=== PATIENT | male | born 1955 | race Caucasian/White ===

== ENCOUNTER → 2016-03-24 | Outpatient (CLI) | payer OTHER | LOC: M SMT 13:48 | PROVIDERS: ATTEND Urology | DX: R97.20 Elevated prostate specific antigen [PSA] (principal) ==

== ENCOUNTER → 2016-09-30 | Outpatient (REF) | payer OTHER ==
[~2016-09-30] MED LIST: CIPR-249 PO; CLAR1TAB2 PO; FINA5TAB2 PO; FLOM5CAP PO; FLON1SPR; LEVA1TAB2 PO; MONT10TA2 PO; OLOP1OPD OU; PHEN200T22 PO; PRIL20CA9 PO; PROAAER10 INH; TYLE325T5 PO; VITA5ELUD PO
== END ==
LOC: M LAB REF 20:25
PROVIDERS: ATTEND Physician Assistant Medical
DX: R30.0 Dysuria (principal)

== ENCOUNTER 2016-10-01 18:25 | Inpatient (IN) | payer OTHER ==
[~2016-10-01] VITALS: Ht 177.8 cm; Wt 102.7 kg
[2016-10-01] MEDS ORDERED: PRIL20CA9 PO (18:36)
[2016-10-01] MEDS ORDERED: PHEN200T22 PO (18:36)
[2016-10-01] MEDS ORDERED: CIPR-249 PO (18:36)
[2016-10-01] MEDS ORDERED: CLAR1TAB2 PO (18:36)
[2016-10-01] MEDS ORDERED: ONDANSETRON 4MG/2ML VIAL (J2405) IV ONE (20:00)
[2016-10-01] MEDS ORDERED: KETOROLAC 30 MG/ML VIAL (J1885) IV ONE (20:00)
[2016-10-01 20:19] LABS: BASO % 0.3 % (0.0-1.0); EOS # 0.2 K/mm3 (0.0-0.50); EOS % 1.4 % (0.0-3.0); LARGE UNSTAINED CELL # 0.1 K/mm3 (0.0-0.4); LARGE UNSTAINED CELL % 0.8 % (0.0-4.0); LYMPH # 1.1 K/mm3 (1.5-4.5); LYMPH % 6.2 % (24.0-44.0); MEAN CORPUSCULAR HEMOGLOBIN 30.1 pg (27.0-33.0); MEAN CORPUSCULAR HGB CONC 34.7 g/dl (32.0-36.5); MEAN CORPUSCULAR VOLUME 86.9 fl (80.0-96.0); MONO # 1.1 K/mm3 (0.0-0.8); MONO % 7.1 % (0.0-5.0); NEUTROPHILS # 13.2 K/mm3 (1.8-7.7); NEUTROPHILS % 84.1 % (36.0-66.0); PLATELET COUNT, AUTOMATED 237 k/mm3 (150-450); RED CELL DISTRIBUTION WIDTH 13.2 % (11.5-14.5); WHITE BLOOD COUNT 15.7 K/mm3 (4.0-10.0)
[2016-10-01 20:32] LABS: ALBUMIN 4.4 GM/DL (3.2-5.2); ALBUMIN/GLOBULIN RATIO 1.38 (1.00-1.93); BILIRUBIN,DIRECT 0.3 MG/DL (0.0-0.2); BILIRUBIN,TOTAL 1.2 MG/DL (0.2-1.0); CALCIUM LEVEL 8.6 MG/DL (8.8-10.2); CREATININE FOR GFR 2.05 MG/DL (0.70-1.30); GLOMERULAR FILTRATION RATE 35.4 (>49); POTASSIUM SERUM 4.1 MEQ/L (3.5-5.1); TOTAL PROTEIN 7.6 GM/DL (6.4-8.2)
[2016-10-01 20:51] LABS: ERYTHROCYTE SEDIMENTATION RATE 3 mm/hr (0-20)
--- NOTE | 2016-10-01 21:10 | REPUSA ---
CT of the abdomen and pelvis without contrast Clinical statement: Pain. Technique: Multiple axial CT images were obtained from the base of the lungs to the floor of the pelv is utilizing 5 mm axial slices without administration of contrast. Coronal and sagittal reconstructio ns were also obtained. No comparison is available. Findings: Chest: The visualized lung bases are clear. Abdomen: The kidneys are normal in size bilaterally. There is no evidence of nephrolithiasis. However , there is moderately severe bilateral hydronephrosis and hydroureter, with bilateral perinephric inf lammatory stranding noted. There is diffuse low attenuation of the liver. Low attenuation lesions ar e seen in the anterior right and left lobes of the liver, consistent with simple cysts. The spleen, p ancreas, gallbladder and adrenal glands are unremarkable. The aorta demonstrates normal caliber and c ontour. There is no abdominal lymphadenopathy or ascites. Pelvis: The bowel is unremarkable, with no obstructive or inflammatory changes. The urinary bladder i s significantly distended, but no focal masses or bladder wall thickening is appreciated. There is no pelvic lymphadenopathy or ascites. The prostate gland is significantly enlarged, measuring 6.2 x 5.8 cm. Bones: There are no suspicious osseous abnormalities seen. Impression: 1. Bilateral moderate hydronephrosis and hydroureter, with bilateral perinephric inflammatory strandi ng. Additionally, there is significant distention of the urinary bladder. No kidney stones identified . The findings suggest a bladder outlet obstruction, possibly secondary to the enlarged prostate. Fol low-up is suggested as clinically indicated. 2. Fatty infiltration of the liver. Simple cysts within the liver as described. 3. No obstructive or inflammatory bowel changes.
[2016-10-01] MEDS ORDERED: cefTRIAXone SOD 1 GM in D5W MINI-BAG PLUS 50 ML IV ONE (21:45)
[2016-10-01] MEDS ORDERED: MORPHINE 4 MG/ML 1ML SYRINGE IV ONE (22:00)
[2016-10-01] MEDS ORDERED: NS 1,000 ML IV ONE (22:15)
[2016-10-01] MEDS ORDERED: PROAAER10 INH (22:16)
[2016-10-01] MEDS ORDERED: OLOP1OPD OU (22:16)
[2016-10-01] MEDS ORDERED: VITA5ELUD PO (22:16)
[2016-10-01] MEDS ORDERED: TYLE325T5 PO (22:16)
[2016-10-01] MEDS ORDERED: FLON1SPR (22:16)
[2016-10-01] MEDS ORDERED: BISACODYL 5 MG TAB PO PRN (22:30)
[2016-10-01] MEDS ORDERED: ONDANSETRON 4MG/2ML VIAL (J2405) IV PRN (22:30)
[2016-10-01] MEDS ORDERED: MORPHINE 2 MG/ML 1ML SYRINGE IV PRN (22:30)
[2016-10-01] MEDS ORDERED: ACETAMINOPHEN TAB 650MG DOSE (2X325MG) PO PRN (22:30)
[2016-10-01] MEDS ORDERED: PERCOCET 5MG/325MG TAB PO PRN (22:30)
[2016-10-01] MEDS ORDERED: MIRALAX *UNIT DOSE* 17GM PACKET PO PRN (22:30)
[2016-10-01 23:55] VITALS: BP 152/85
[2016-10-02] MEDS: FINASTERIDE 5 MG TAB PO SCH ×2 (00:30→21:07)
[2016-10-02] MEDS: SENOKOT S TAB PO SCH ×3 (00:30→21:07)
[2016-10-02] MEDS: MOM 30ML SUSPENSION UDC PO SCH ×3 (00:30→21:06)
[2016-10-02] MEDS: NS 1,000 ML IV SCH ×3 (00:31→08:52)
[2016-10-02 01:43] LABS: CALCIUM LEVEL 8.8 MG/DL (8.8-10.2); CREATININE FOR GFR 1.43 MG/DL (0.70-1.30); GLOMERULAR FILTRATION RATE 53.7 (>49); POTASSIUM SERUM 3.9 MEQ/L (3.5-5.1)
--- NOTE | 2016-10-02 02:39 | HPE ---
DATE OF ADMISSION: 10/01/2016 PRIMARY CARE PROVIDER: Rosemary Pickard. UROLOGIST: . HISTORY OF PRESENT ILLNESS: The patient is a 60-year-old man who in the past has had a history of an enlarged prostate. He is status post numerous biopsies with elevated prostate-specific antigen (PSA). He follows in the urology clinic yearly. He has had no issues up until the last week where he began to have dysuria and feeling weak. He began to have fevers and chills and was unable to make urine on Sunday, so he presented to the urgent care where he was provided with ciprofloxacin and Pyridium. He did take this briefly and it improved his symptoms; however, they began to worsen once again and as such throughout the day today he was beginning to feel nauseous having worsening pain in his pelvis and he points to the suprapubic area, which prompted him to present to the hospital. He has not made significant urine. He has not had a bowel movement in 3 days. He denies chest pain, shortness of breath, vomiting or diarrhea. PAST MEDICAL HISTORY: 1. Seasonal allergies. 2. Gastroesophageal reflux disease. 3. Asthma. HOME MEDICATIONS: - Tylenol 650 every 4 hours as needed for pain - ciprofloxacin 500mg twice a day started on Sunday - phenazopyridine 200 mg three times a day started on Sunday - multivitamin one tablet 5 mL daily - ProAir HFA two puffs inhaled daily - Flonase two sprays nasally daily - Claritin 10 mg daily - Patanol one drop both eyes daily - omeprazole 20 mg daily SURGICAL HISTORY: No surgical history. ALLERGIES: SULFA drugs. SOCIAL HISTORY: He denies tobacco. He admits to drinking 2-3 alcoholic beverages per day. His last drink was on Sunday. It was a vodka tonic. He is accompanied in the emergency room by his daughter and his brother who appears to be medically educated. FAMILY HISTORY: Noncontributory. REVIEW OF SYSTEMS: 10-point review of systems completely negative other than history of present illness (HPI). PHYSICAL EXAMINATION: VITAL SIGNS: Temperature 99.4, heart rate 83, respiratory rate 18, blood pressure 135/67, oxygen saturation 96% on room air. GENERAL: He is a pleasant, obese man lying flat in a stretcher. He appears comfortable not in any acute distress. He is awake, alert and oriented times three. HEENT: Cranial nerves II-XII are grossly intact. He has moist mucous membranes. No elevation of central venous pressure (CVP). CARDIOVASCULAR EXAM: S1, S2. RESPIRATORY EXAM: Clear. ABDOMINAL EXAM: Obese. There is suprapubic tenderness. Costovertebral angle (CVA) tenderness on the right, not on the left. EXTREMITIES: No clubbing, cyanosis. There is trace edema bilaterally. He has a Burnett catheter placed draining tea-colored urine. LABORATORY STUDIES: WBC 15.7, hemoglobin 16, hematocrit 46.1, platelet count 237. Chemistry panel: Sodium 129, potassium 4.1, chloride 94, bicarbonate 24, BUN 26 , creatinine 2.0. Urinalysis is 1+ blood, 4+ urobilinogen, 4 RBCs. Microbiology: Urine culture has been drawn. IMAGING: The patient did have a CT scan of the abdomen and pelvis which revealed bilateral moderate hydronephrosis and hydroureter with bilateral perinephric inflammatory stranding, significant distention of the urinary bladder. Findings suggest a bladder outlet obstruction possibly secondary to the enlarged prostate , fatty infiltration of the liver. No obstructive or inflammatory bowel changes. ASSESSMENT AND PLAN: This is a 60-year-old man with acute renal failure secondary to a bladder outlet obstruction related to his enlarged prostate. 1. Acute renal failure secondary to bladder outlet obstruction due to enlarged prostate. The patient has a sulfa allergy. I will start him on finasteride and I will provide him with pain relief. He has had a Burnett catheter placed and drained 1.5 liters of tea-colored urine since then before it was being clamped. I will bolus him 1 liter of normal saline and I will continue running him at 150 mL/h. After he receives his bolus, will unclamp the Burnett and allow it to drain. Monitor his renal function. Admit him to a medical/surgical floor. I did speak with Dr. Washburn of urology who told me that would be able to see the patient tomorrow morning. The patient does follow with in the clinic. The patient does appear to have a leukocytosis and certainly given the radiology findings, there is concern that he may have pyelonephritis, as well as his costovertebral angle (CVA) tenderness. He has been started on ceftriaxone which I will continue. At this time it is unclear if the infection came first or the infection followed the obstruction. By history it looks as though the infection followed the history and as such I would suggest treating him for 14 days for pyelonephritis as opposed to a longer course for prostatitis, but will defer to urology who know him and his prostate much better. He will be provided with pain relief. 2. Hyponatremia likely related to hypovolemia and acute renal failure. Will re-hydrate him and monitor his sodium. 3. Constipation. May be a contributing factor to his urinary retention. Provide him with a bowel regimen. 4. Seasonal allergies. Will continue his home medications. 5. Asthma. Continue his home inhalers. 6. Gastroesophageal reflux disease. Continue with his proton pump inhibitor (PPI). 7. Deep venous thrombosis (DVT) prophylaxis. He will be on heparin twice a day. DISPOSITION: The patient is admitted to the medical/surgical service to Dr. Salvador's service who will continue following the patient at 7 a.m. [facility]
[2016-10-02 06:00] VITALS: BP 139/71
[2016-10-02 06:04] LABS: MEAN CORPUSCULAR HEMOGLOBIN 30.8 pg (27.0-33.0); RED CELL DISTRIBUTION WIDTH 13.3 % (11.5-14.5); WHITE BLOOD COUNT 8.6 K/mm3 (4.0-10.0)
[2016-10-02 06:24] LABS: ANION GAP 8 MEQ/L (8-16); BLOOD UREA NITROGEN 18 MG/DL (7-18); CALCIUM LEVEL 8.5 MG/DL (8.8-10.2); CARBON DIOXIDE LEVEL 26 MEQ/L (21-32); CHLORIDE LEVEL 106 MEQ/L (98-107); CREATININE FOR GFR 1.19 MG/DL (0.70-1.30); GLOMERULAR FILTRATION RATE > 60.0 (>49); GLUCOSE, FASTING 101 MG/DL (80-110); SODIUM LEVEL 140 MEQ/L (136-145)
[2016-10-02] MEDS: ALBUTEROL 90 MCG/ACT 8GM HFA INHALER INH SCH (09:00)
[2016-10-02] MEDS: HEPARIN SOD (PORCINE) 5000 UNITS/ML VIAL SC SCH ×2 (09:48→21:00)
[2016-10-02] MEDS: OMEPRAZOLE 20 MG CAP PO SCH (09:48)
[2016-10-02] MEDS: LORATADINE 10 MG TAB PO SCH (09:49)
[2016-10-02] MEDS: OLOPATADINE 0.1% OPHTH SOL 5ML(PATANOL) OU SCH (09:50)
[2016-10-02] MEDS: FLUTICASONE PROP 0.05% NASAL SPRAY 16 GM (FLONASE) SCH (09:50)
--- NOTE | 2016-10-02 10:37 | IPNPDOC ---
Subjective Date Seen The patient was seen on 10/02/16. Subjective Chief Complaint/HPI The patient is a 60-year-old male admitted with a reason for visit of ARF. Events since last encounter feeling better , abdominal pain and distension resolved, back pain better, no fever or chills, no chest pain or sob , no abdominal pain , nausea or vomiting. Objective Physical Examination General Exam: Positive: Alert, Cooperative, No Acute Distress Eye Exam: Positive: PERRLA, Conjunctiva & lids normal, EOMI, Negative: Sclera icteric ENT Exam: Positive: Atraumatic, Mucous membr. moist/pink, Pharynx Normal Neck Exam: Positive: Supple, Negative: JVD, thyromegaly Chest Exam: Positive: Clear to auscultation, Normal air movement Heart Exam: Positive: Rate Normal, Regular Rhythm, Normal S1, Normal S2, Negative: Murmurs, Rubs Abdomen Exam: Positive: Normal bowel sounds, Soft, Negative: Tenderness, Hepatospenomegaly Extremity Exam: Positive: Normal pulses, Negative: Clubbing, Cyanosis, Edema Skin Exam: Positive: Nl turgor and temperature, Negative: Rash, Breakdown Assessment /Plan Problems (1) Acute kidney failure Status: Acute Problem Text: due to obstructive uropathy due to BPH improved with barrett insertion to see the patient. (2) Obstructive uropathy Status: Acute Problem Text: due to BPH barrett insertion produced 2000 ml of urine initially will start on flomax and continue finasteride may have to go home with barrett in leg bag. (3) Pyelonephritis Status: Acute Problem Text: CT shows possible pyelonephritis however ua is clean. will continue with ceftriaxone. follow culture. (4) BPH (benign prostatic hyperplasia) Status: Chronic (5) Asthma Status: Chronic (6) GERD (gastroesophageal reflux disease) Status: Chronic Plan/VTE VTE Prophylaxis Ordered?: Yes Plan/Urinary Catheter Reason for insertion/continuin: Acute obstruct/retention VS, I&O, 24H, Fishbone Vital Signs/I&O Vital Signs Date Time Temp Pulse Resp B/P (MAP) Pulse Ox O2 Delivery O2 Flow Rate FiO2 10/02/16 06:00 97.5 74 17 139/71 (93) 95 Room Air I&O- Last 24 Hours up to 6 AM 10/02/16 06:00 Intake Total 825 ml Output Total 2400 ml Balance -1575 ml Laboratory Data 24H LABS Laboratory Tests 2 10/01/16 19:50: Urine Appearance CLEAR, Urine Color YELLOW, Urine pH 5.0, Urine Specific [place] 1.006, Urine Protein NEGATIVE, Urine Glucose (UA) NEGATIVE, Urine Ketones NEGATIVE, Urine Urobilinogen 4.0H, Urine Bilirubin NEGATIVE, Urine Leukocyte Esterase NEGATIVE, Urine Blood 1+H, Urine Nitrite NEGATIVE, Urine WBC (Auto) 2, Urine RBC (Auto) 4H, Urine Hyaline Casts (Auto) 0, Urine Bacteria ( Auto) NEGATIVE, Urine Squamous Epithelial Cells 0, Urine Sperm (Auto) 10/01/16 20:02: White Blood Count 15.7H, Red Blood Count 5.31, Hemoglobin 16.0, Hematocrit 46.1 , Mean Corpuscular Volume 86.9, Mean Corpuscular Hemoglobin 30.1, Mean Corpuscular Hemoglobin Concent 34.7, Red Cell Distribution Width 13.2, Platelet Count 237, Neutrophils (%) (Auto) 84.1H, Lymphocytes (%) (Auto) 6.2L, Monocytes (%) (Auto) 7.1H, Eosinophils (%) (Auto) 1.4, Basophils (%) (Auto) 0.3, Neutrophils # (Auto) 13.2H, Lymphocytes # (Auto) 1.1L, Monocytes # (Auto) 1.1H, Eosinophils # (Auto) 0.2, Basophils # (Auto) 0.0, Large Unclassified Cells % 0.8 , Large Unclassified Cells # 0.1, Erythrocyte Sedimentation Rate 3, Anion Gap 11 , Glomerular Filtration Rate 35.4L, Lactic Acid Level 1.6, Calcium Level 8.6L, Aspartate Amino Transf (AST/SGOT) 24, Alanine Aminotransferase (ALT/SGPT) 38, Alkaline Phosphatase 97, Total Bilirubin 1.2H, Direct Bilirubin 0.3H, C- Reactive Protein, Quantitative 6.64H, Total Protein 7.6, Albumin 4.4, Albumin/ Globulin Ratio 1.38, Amylase Level 36, Lipase 130 10/02/16 01:12: Anion Gap 6L, Glomerular Filtration Rate 53.7, Calcium Level 8.8, Blood Urea Nitrogen 22H, Creatinine 1.43H, Sodium Level 134L, Potassium Level 3.9, Chloride Level 102, Carbon Dioxide Level 26 10/02/16 05:22: Anion Gap 8, Glomerular Filtration Rate > 60.0, Calcium Level 8.5L, Blood Urea Nitrogen 18, Creatinine 1.19, Sodium Level 140, Potassium Level 4.0, Chloride Level 106, Carbon Dioxide Level 26 CBC/BMP Laboratory Tests 10/01/16 20:02 Red Blood Count 5.31, Mean Corpuscular Volume 86.9, Mean Corpuscular Hemoglobin 30.1, Mean Corpuscular Hemoglobin Concent 34.7, Red Cell Distribution Width 13.2 , Neutrophils (%) (Auto) 84.1 H, Lymphocytes (%) (Auto) 6.2 L, Monocytes (%) ( Auto) 7.1 H, Eosinophils (%) (Auto) 1.4, Basophils (%) (Auto) 0.3, Neutrophils # (Auto) 13.2 H, Lymphocytes # (Auto) 1.1 L, Monocytes # (Auto) 1.1 H, Eosinophils # (Auto) 0.2, Basophils # (Auto) 0.0 10/02/16 01:12 Calcium Level 8.8 10/02/16 05:22 Red Blood Count 4.40, Mean Corpuscular Volume 88.0, Mean Corpuscular Hemoglobin 30.8, Mean Corpuscular Hemoglobin Concent 35.0, Red Cell Distribution Width 13.3 , Calcium Level 8.5 L Microbiology Microbiology 10/01/16 Blood Culture, Received Pending 10/01/16 Blood Culture, Received Pending 10/01/16 Urine Culture, Received Pending DALIA SANTANA MD Oct 02, 2016 10:36
[2016-10-02] MEDS: TAMSULOSIN 0.4 MG CAP PO SCH (12:37)
[2016-10-02 14:00] VITALS: BP 137/65
[2016-10-02] MEDS: cefTRIAXone SOD 1 GM in D5W MINI-BAG PLUS 50 ML IV SCH (21:09)
[2016-10-02] MEDS: PERCOCET 5MG/325MG TAB PO PRN (21:36)
[2016-10-02 22:00] VITALS: BP 151/70
[2016-10-03] MEDS: NS 1,000 ML IV SCH ×3 (01:02→10:01)
[2016-10-03 06:00] VITALS: BP 132/68
[2016-10-03 06:51] LABS: MEAN CORPUSCULAR HEMOGLOBIN 30.6 pg (27.0-33.0); RED CELL DISTRIBUTION WIDTH 13.1 % (11.5-14.5)
[2016-10-03 07:05] LABS: ANION GAP 8 MEQ/L (8-16); BLOOD UREA NITROGEN 20 MG/DL (7-18); CALCIUM LEVEL 7.8 MG/DL (8.8-10.2); CARBON DIOXIDE LEVEL 25 MEQ/L (21-32); CHLORIDE LEVEL 113 MEQ/L (98-107); CREATININE FOR GFR 0.77 MG/DL (0.70-1.30); GLOMERULAR FILTRATION RATE > 60.0 (>49); GLUCOSE, FASTING 91 MG/DL (80-110); SODIUM LEVEL 146 MEQ/L (136-145)
[2016-10-03] MEDS: HEPARIN SOD (PORCINE) 5000 UNITS/ML VIAL SC SCH ×2 (08:17→21:20)
[2016-10-03] MEDS: MOM 30ML SUSPENSION UDC PO SCH ×2 (08:17→21:20)
[2016-10-03] MEDS: SENOKOT S TAB PO SCH ×2 (08:17→21:21)
[2016-10-03] MEDS: FLUTICASONE PROP 0.05% NASAL SPRAY 16 GM (FLONASE) SCH (08:17)
[2016-10-03] MEDS: OMEPRAZOLE 20 MG CAP PO SCH (08:17)
[2016-10-03] MEDS: LORATADINE 10 MG TAB PO SCH (08:17)
[2016-10-03] MEDS: TAMSULOSIN 0.4 MG CAP PO SCH (08:17)
[2016-10-03] MEDS: OLOPATADINE 0.1% OPHTH SOL 5ML(PATANOL) OU SCH (08:18)
[2016-10-03] MEDS: ALBUTEROL 90 MCG/ACT 8GM HFA INHALER INH SCH ×2 (08:23→08:29)
--- NOTE | 2016-10-03 13:43 | IPNPDOC ---
Date Seen The patient was seen on 10/03/16. Progress Note Hospitalist Progress Note Subjective: Patient states that he overall feels well but is a little bit tired Objective: Physical Exam: Vitals: Vital Sign - Last 24 Hours 10/02/16 10/02/16 10/02/16 10/02/16 14:00 14:04 14:34 21:36 Temp 98.3 Pulse 88 Resp 16 18 18 18 B/P (MAP) 137/65 (89) Pulse Ox 95 O2 Delivery Room Air 10/02/16 10/03/16 10/03/16 22:00 00:12 06:00 Temp 98.3 97.4 Pulse 86 74 Resp 17 16 17 B/P (MAP) 151/70 (97) 132/68 (89) Pulse Ox 95 97 O2 Delivery Room Air Room Air General: Awake, alert, no acute distress HEENT: Extraocular movements intact, moist mucous membranes CV:. Regular Rate and rhythm Lungs: Clear to auscultation bilaterally Abd: Soft, nontender, nondistended Extremities: No edema Neuro: Alert and oriented 3, normal speech Psych: Normal mood and affect Labs and Imaging: Laboratory Tests 10/03/16 06:34 Red Blood Count 4.09 L, Mean Corpuscular Volume 90.0, Mean Corpuscular Hemoglobin 30.6, Mean Corpuscular Hemoglobin Concent 34.0, Red Cell Distribution Width 13.1, Calcium Level 7.8 L Assessment and Plan: 60-year-old male with seasonal allergies, GERD, asthma, enlarged prostate who follows regularly with who is admitted with acute urinary retention causing acute kidney injury, as well as likely pyelonephritis. 1. Acute urinary retention: This appears to be secondary to bladder outlet obstruction likely secondary to enlarged prostate. The patient now has a Burnett in place, which we will continue. He has been seen by , and 's note is still pending registration rep. We will follow up 's note. Continue Flomax and finasteride. At discharge, the patient will need urology follow-up, however, he has requested a second opinion, so we will try to set him up with Dr. Ponce. 2. Acute kidney injury: Secondary to bladder outlet obstruction. Creatinine was 2.05 upon admission, and has now improved to 0.77. We will stop IV fluids and monitor overnight. Continue Burnett catheter. 3. Likely pyelonephritis: The patient has been afebrile, however, his WBC upon admission was 15.7, and CT of the abdomen and pelvis notes bilateral moderate hydronephrosis and hydroureter with bilateral perinephric inflammatory stranding , which would be consistent with pyelonephritis. We will continue his Rocephin, and hopefully change him to oral antibiotics tomorrow. He'll need to continue this for at least 2 weeks of therapy. Blood cultures currently negative at 24 hours. 4. Seasonal allergies: Continue home loratadine and Flonase. 5. GERD: Continue home PPI. 6. Asthma: Currently controlled. Continue home as needed albuterol. 7. Hyponatremia: Resolved with resolution of FIDELIA. DVT prophylaxis: Heparin Dispo: hopefully home tomorrow if kidney function remains normal after stopping IV fluids and pending urology note registration rep VS, I&O, 24H, Fishbone Vital Signs/I&O Vital Signs Date Time Temp Pulse Resp B/P (MAP) Pulse Ox O2 Delivery O2 Flow Rate FiO2 10/03/16 06:00 97.4 74 17 132/68 (89) 97 Room Air I&O- Last 24 Hours up to 6 AM 10/03/16 06:00 Intake Total 1760 ml Output Total 2750 ml Balance -990 ml Laboratory Data 24H LABS Laboratory Tests 2 10/03/16 06:34: Anion Gap 8, Glomerular Filtration Rate > 60.0, Blood Urea Nitrogen 20H, Creatinine 0.77, Sodium Level 146H, Potassium Level 4.0, Chloride Level 113H, Carbon Dioxide Level 25, Calcium Level 7.8L CBC/BMP Laboratory Tests 10/03/16 06:34 Red Blood Count 4.09 L, Mean Corpuscular Volume 90.0, Mean Corpuscular Hemoglobin 30.6, Mean Corpuscular Hemoglobin Concent 34.0, Red Cell Distribution Width 13.1, Calcium Level 7.8 L Microbiology Microbiology 10/01/16 Blood Culture - Preliminary, Resulted No growth after 24 hours . All specim... 10/01/16 Blood Culture - Preliminary, Resulted No growth after 24 hours . All specim... 10/01/16 Urine Culture - Final, Complete SOPHIA HORTON Oct 03, 2016 13:43
[2016-10-03 14:00] VITALS: BP 141/107
[2016-10-03] MEDS: cefTRIAXone SOD 1 GM in D5W MINI-BAG PLUS 50 ML IV SCH (21:19)
[2016-10-03] MEDS: FINASTERIDE 5 MG TAB PO SCH (21:37)
[2016-10-03] MEDS: PERCOCET 5MG/325MG TAB PO PRN (21:37)
[2016-10-04 06:00] VITALS: BP 132/68
[2016-10-04 06:10] LABS: MEAN CORPUSCULAR HEMOGLOBIN 30.8 pg (27.0-33.0); MEAN CORPUSCULAR HGB CONC 34.7 g/dl (32.0-36.5); MEAN CORPUSCULAR VOLUME 88.8 fl (80.0-96.0); RED CELL DISTRIBUTION WIDTH 13.1 % (11.5-14.5); WHITE BLOOD COUNT 5.5 K/mm3 (4.0-10.0)
[2016-10-04 06:18] LABS: ANION GAP 7 MEQ/L (8-16); BLOOD UREA NITROGEN 18 MG/DL (7-18); CALCIUM LEVEL 7.9 MG/DL (8.8-10.2); CARBON DIOXIDE LEVEL 28 MEQ/L (21-32); CHLORIDE LEVEL 108 MEQ/L (98-107); CREATININE FOR GFR 0.71 MG/DL (0.70-1.30); GLOMERULAR FILTRATION RATE > 60.0 (>49); GLUCOSE, FASTING 98 MG/DL (80-110); MAGNESIUM LEVEL 2.5 MG/DL (1.8-2.4); POTASSIUM SERUM 3.8 MEQ/L (3.5-5.1); SODIUM LEVEL 143 MEQ/L (136-145)
[2016-10-04] MEDS ORDERED: CALCIUM GLUCONATE 1,000 MG in D5W MINI-BAG PLUS 100 ML IV ONE (06:45)
[2016-10-04] MEDS: ALBUTEROL 90 MCG/ACT 8GM HFA INHALER INH SCH (08:31)
[2016-10-04] MEDS ORDERED: CEPHALEXIN 500 MG CAP PO SCH (09:00)
[2016-10-04] MEDS: HEPARIN SOD (PORCINE) 5000 UNITS/ML VIAL SC SCH (10:22)
[2016-10-04] MEDS: MOM 30ML SUSPENSION UDC PO SCH (10:22)
[2016-10-04] MEDS: LORATADINE 10 MG TAB PO SCH (10:23)
[2016-10-04] MEDS: SENOKOT S TAB PO SCH (10:23)
[2016-10-04] MEDS: TAMSULOSIN 0.4 MG CAP PO SCH (10:23)
[2016-10-04] MEDS: OMEPRAZOLE 20 MG CAP PO SCH (10:23)
[2016-10-04] MEDS: FLUTICASONE PROP 0.05% NASAL SPRAY 16 GM (FLONASE) SCH (10:24)
[2016-10-04] MEDS: OLOPATADINE 0.1% OPHTH SOL 5ML(PATANOL) OU SCH (10:24)
[2016-10-04] MEDS ORDERED: FLOM5CAP PO (12:54)
[2016-10-04] MEDS ORDERED: LEVA1TAB2 PO (12:54)
[2016-10-04] MEDS ORDERED: FINA5TAB2 PO (12:54)
--- NOTE | 2016-10-04 14:12 | DS.PDOC ---
Discharge Summary General Date of Admission Oct 01, 2016 at 22:18 Date of Discharge 10/04/2016 Discharge Summary DISCHARGE SUMMARY DATE OF ADMISSION: 10/01/2016 DATE OF DISCHARGE: 10/04/2016 PRIMARY CARE PHYSICIAN: Rosemary Pickard DISCHARGE DIAGNOS(E)S: Acute urinary retention Bladder outlet obstruction Acute kidney injury Pyelonephritis Hyponatremia HPI & HOSPITAL COURSE: 60-year-old male with seasonal allergies, GERD, asthma, enlarged prostate who follows regularly with who is admitted with acute urinary retention causing acute kidney injury, as well as likely pyelonephritis. 1. Acute urinary retention: This appears to be secondary to bladder outlet obstruction likely secondary to enlarged prostate. The patient now has a Barrett in place, which we will continue. He has been seen by , who recommends discharge with barrett and outpatient follow up for voiding trial in one week, 3 months of finasteride and flomax, and a quinolone as long as the patient has the catheter in. Continue Flomax and finasteride. At discharge, the patient will need urology follow-up, however, he has requested a second opinion, so we will try to set him up with Dr. Ponce. 2. Acute kidney injury: Secondary to bladder outlet obstruction. Creatinine was 2.05 upon admission, and has now improved to WNL with insertion of barrett. Continue Barrett catheter. 3. Likely pyelonephritis: The patient has been afebrile, however, his WBC upon admission was 15.7, and CT of the abdomen and pelvis notes bilateral moderate hydronephrosis and hydroureter with bilateral perinephric inflammatory stranding , which would be consistent with pyelonephritis. He is now s/p 3 doses of rocephin, and per 's recs, we will continue him on levaquin. He'll need to continue this for at least a total of 2 weeks of therapy. Blood cultures are negative. 4. Seasonal allergies: Continue home loratadine and Flonase. 5. GERD: Continue home PPI. 6. Asthma: Currently controlled. Continue home as needed albuterol. 7. Hyponatremia: Resolved with resolution of FIDELIA. DVT prophylaxis: Heparin Of note, at the patient's request, I have called and spoken to his daughter Nisha Morel on the telephone. I answered all questions. PHYSICAL EXAMINATION ON DISCHARGE: VITAL SIGNS: Vital Signs Date Time Temp Pulse Resp B/P (MAP) Pulse Ox O2 Delivery O2 Flow Rate FiO2 10/04/16 06:00 97.4 74 17 132/68 (89) 97 Room Air General: Awake, alert, no acute distress HEENT: Extraocular movements intact, moist mucous membranes CV:. Regular Rate and rhythm Lungs: Clear to auscultation bilaterally Abd: Soft, nontender, nondistended Extremities: No edema Neuro: Alert and oriented 3, normal speech Psych: Normal mood and affect DISPOSITION: Home DISCHARGE INSTRUCTIONS: Follow-up PCP within one week. Follow-up urology in 1 week. Of note, the patient has requested a second opinion , so per the patient's request, we will be setting him up to see Dr. Ponce. Maintain Barrett catheter until urology follow-up. If symptoms return, or if you experience worsening of your symptoms, please call your doctor or return to the emergency department. ITEMS THAT NEED OUTPATIENT FOLLOWUP: Voiding trial Patient was seen and examined by me on the day of discharge, and I spent a total time of greater than 30 minutes on this discharge. Vital Signs/I&Os Vital Signs Date Time Temp Pulse Resp B/P (MAP) Pulse Ox O2 Delivery O2 Flow Rate FiO2 10/04/16 06:00 97.4 74 17 132/68 (89) 97 Room Air I&O- Last 24 Hours up to 6 AM 10/04/16 06:00 Intake Total 3115 ml Output Total 1950 ml Balance 1165 ml Laboratory Data Labs 24H Laboratory Tests 2 10/04/16 05:35: Anion Gap 7L, Glomerular Filtration Rate > 60.0, Blood Urea Nitrogen 18, Creatinine 0.71, Sodium Level 143, Potassium Level 3.8, Chloride Level 108H, Carbon Dioxide Level 28, Calcium Level 7.9L, Magnesium Level 2.5H CBC/BMP Laboratory Tests 10/04/16 05:35 Red Blood Count 3.83 L, Mean Corpuscular Volume 88.8, Mean Corpuscular Hemoglobin 30.8, Mean Corpuscular Hemoglobin Concent 34.7, Red Cell Distribution Width 13.1, Calcium Level 7.9 L Microbiology Microbiology 10/01/16 Blood Culture - Preliminary, Resulted No Growth after 48 hours. All Specime... 10/01/16 Blood Culture - Preliminary, Resulted No Growth after 48 hours. All Specime... 10/01/16 Urine Culture - Final, Complete Discharge Medications Scheduled (Flonase Allergy Relief) 50 Mcg/Act Spr, 2 SPRAYS NA DAILY, (Reported) Albuterol Sulfate (Proair Hfa) 108 Mcg/Act Aer, 2 PUFF INH DAILY, (Reported) Finasteride (Finasteride) 5 Mg Tab, 5 MG PO QHS Levofloxacin Hemihydrate (Levaquin) 500 Mg Tab, 500 MG PO DAILY Loratadine (Claritin) 10 Mg Tab, 10 MG PO DAILY, (Reported) Multivitamins Liquid *[facility] STOCKED* (Multi-Delyn Liquid *[facility] STOCKED*) 5 Ml Liqd , 5 ML PO DAILY, (Reported) Olopatadine Hydrochloride (Patanol) 100 Drop/5 Ml Soln, 1 DROP OU DAILY, ( Reported) ONE DROP Omeprazole (Prilosec) 20 Mg Cap, 20 MG PO DAILY, (Reported) Phenazopyridine Hcl (Phenazo) 200 Mg Tab, 200 MG PO TID, (Reported) Tamsulosin Hydrochloride (Flomax) 0.4 Mg Cap, 0.4 MG PO DAILY Scheduled PRN Acetaminophen (Tylenol) 325 Mg Tab, 650 MG PO Q4H PRN for PAIN, (Reported) Allergies Coded Allergies: Sulfa Antibiotics (Verified Allergy, Intermediate, rash, 10/01/16) SOPHIA HORTON Oct 04, 2016 14:11
[2016-11-03] MEDS ORDERED: MONT10TA2 PO (11:52)
== END 2016-10-04 14:49 | disposition home or self-care (01) | DRG 683 ==
LOC: M ED 18:25 → M ED INP 22:18 → M MSPAV 23:45
PROVIDERS: ADMIT Internal Medicine; ATTEND Hospitalist
DX: N17.9 Acute kidney failure, unspecified (principal); E87.1 Hypo-osmolality and hyponatremia; N40.1 Benign prostatic hyperplasia with lower urinary tract symptoms; N10 Acute pyelonephritis; E66.9 Obesity, unspecified; K76.0 Fatty (change of) liver, not elsewhere classified; K59.00 Constipation, unspecified; R33.9 Retention of urine, unspecified; K21.9 Gastro-esophageal reflux disease without esophagitis; J45.909 Unspecified asthma, uncomplicated; Z79.899 Other long term (current) drug therapy; Z88.2 Allergy status to sulfonamides; Z68.32 Body mass index [BMI] 32.0-32.9, adult

== ENCOUNTER → 2016-11-14 | Outpatient (CLI) | payer OTHER | LOC: M SMT 10:16 | PROVIDERS: ATTEND Urology | DX: R97.20 Elevated prostate specific antigen [PSA] (principal) ==

== ENCOUNTER 2016-11-15 06:03 | Day surgery (SDC) | payer OTHER ==
[~2016-11-15] VITALS: Ht 177.8 cm; Wt 97.5 kg
[2016-11-15] MEDS ORDERED: LR 1,000 ML IV SCH ×2 (06:15→10:00)
[2016-11-15] MEDS ORDERED: ROCURONIUM BROMIDE 50 MG/5 ML VIAL/SYRINGE As Ordered ONE ×2 (07:15→08:14)
[2016-11-15] MEDS ORDERED: LIDOCAINE 2% INJ 100 MG/5 ML SDV (FOR ANES.) As Ordered ONE (07:15)
[2016-11-15] MEDS ORDERED: MIDAZOLAM INJ 2 MG/2 ML VIAL (J2250) As Ordered ONE (07:15)
[2016-11-15] MEDS ORDERED: fentaNYL 250 MCG/5 ML INJECTION (J3010) As Ordered ONE (07:15)
[2016-11-15] MEDS ORDERED: PROPOFOL 200 MG/20 ML VIAL As Ordered ONE (07:15)
[2016-11-15] MEDS ORDERED: GLYCOPYRROLATE INJ 0.2 MG/ML 2 ML VIAL As Ordered ONE (08:14)
[2016-11-15] MEDS ORDERED: NEOSTIGMINE 10 MG/10 ML VIAL (J2710) As Ordered ONE (08:14)
[2016-11-15] MEDS ORDERED: ONDANSETRON 4MG/2ML VIAL (J2405) As Ordered ONE (08:14)
[2016-11-15] MEDS ORDERED: ePHEDrine SULFATE 25 MG/5 ML(5MG/ML) SYRINGE As Ordered ONE (08:28)
[2016-11-15] MEDS ORDERED: FUROSEMIDE 100 MG/10 ML VIAL (J1940) As Ordered ONE (08:37)
[2016-11-15] MEDS ORDERED: METOCLOPRAMIDE INJ 10MG/2ML VIAL (J2765) IV PRN (10:00)
[2016-11-15] MEDS ORDERED: ONDANSETRON 4MG/2ML VIAL (J2405) IV PRN (10:00)
[2016-11-15] MEDS ORDERED: fentaNYL 100 MCG/2 ML INJECTION (J3010) IV PRN (10:00)
[2016-11-15] MEDS ORDERED: ACETAMINOPHEN TAB 650MG DOSE (2X325MG) PO PRN (10:15)
[2016-11-15] MEDS: PERCOCET 5MG/325MG TAB PO PRN ×2 (10:35→10:55)
[2016-11-15] MEDS ORDERED: oxyBUTYnin 5 MG TAB PO ONE (12:00)
[2016-11-15 12:20] VITALS: BP 150/83
--- NOTE | 2016-11-15 17:03 | RO ---
DATE OF PROCEDURE: 11/15/2016 PREPROCEDURE DIAGNOSIS: Benign prostatic hyperplasia with urinary retention. POSTPROCEDURE DIAGNOSIS: Benign prostatic hyperplasia with urinary retention. PROCEDURE: Cystoscopy, Button transurethral electrovaporization of the prostate. SURGEON: Marcelo Ponce MD INCINERATOR OPERATOR: None. ANESTHESIA: General. OPERATIVE INDICATIONS: This is a 61-year-old male with benign prostatic hyperplasia with urinary retention that has been managed with intermittent catheterization. He was brought to the operating room today for the above listed procedure. DESCRIPTION OF PROCEDURE: The patient was brought to the operating room and general anesthesia was induced. Prophylactic antibiotics were infused. He was then placed in the dorsal lithotomy position and prepped and draped in the usual sterile fashion. A Button resectoscope was inserted through the urethral meatus and advanced into the bladder using a visual obturator. Of note, the patient had trilobar benign prostatic hyperplasia with a fairly prominent median lobe. At this point, I made notation of the location of bilateral ureteral orifices as well as the location of the verumontanu. At this point, I began vaporizing hyperplastic tissue in the median lobe and then circumferentially the bladder neck. I then started working on both lateral lobes and kept doing this until there was clear channel established. Throughout the procedure, I made sure not to vaporize too close to the ureteral orifices or distal to verumontanum. Once there was a clear channel established, hemostasis was then obtained using a coagulation current. At this point, the resectoscope was removed and an #18-Swiss Burnett catheter was inserted into the bladder and the balloon was instilled with 15 mL of sterile water. Fluid drained light pink at the end of the procedure. The catheter was then connected to gravity drainage. This marked the conclusion of the procedure. The patient was then taken out of the dorsal lithotomy position, awakened from anesthesia and transported to the recovery room in stable condition. ESTIMATED BLOOD LOSS: 10 mL INTRAOPERATIVE COMPLICATIONS: None SPECIMENS: None PLAN: The patient will followup in clinic in approximately 1 week for catheter removal and voiding trial. EVITA
== END 2016-11-15 12:36 | disposition home or self-care (01) ==
LOC: M SDC 06:03
PROVIDERS: ATTEND Urology
DX: N40.1 Benign prostatic hyperplasia with lower urinary tract symptoms (principal); J30.2 Other seasonal allergic rhinitis; R06.83 Snoring; Z88.2 Allergy status to sulfonamides; Z79.899 Other long term (current) drug therapy; Z87.891 Personal history of nicotine dependence
CPT/HCPCS: 52601; J0690; J1940; J2250; J2405; J2710; J3010

== ENCOUNTER → 2016-12-22 | Outpatient (REF) | payer OTHER | LOC: M SMT 12:55 | PROVIDERS: ATTEND Urology | DX: R30.0 Dysuria (principal) ==

== ENCOUNTER → 2017-04-11 | Outpatient (CLI) | payer OTHER | LOC: M SMT 13:59 | DX: N40.1 Benign prostatic hyperplasia with lower urinary tract symptoms (principal) | CPT/HCPCS: 84154 ==

== ENCOUNTER → 2018-06-28 | Outpatient (CLI) | payer OTHER ==
[~2018-06-28] MED LIST changes: +FLOM0.4C39 PO; -FLOM5CAP PO; -OLOP1OPD OU; +PATA2.5S OU
== END ==
LOC: M SMT 13:29
PROVIDERS: ATTEND Urology
DX: R97.20 Elevated prostate specific antigen [PSA] (principal)

== ENCOUNTER 2018-07-24 08:20 | Day surgery (SDC) | payer OTHER ==
[~2018-07-24] VITALS: Ht 177.8 cm; Wt 99.3 kg
[~2018-07-24 08:20] MED LIST changes: +CLAR10CA3 PO; +LIDOCAINE 2% INJ 100 MG/5 ML SDV (FOR ANES.) As Ordered ONE; +NS 1,000 ML IV ONE; +OMEP40CA2 PO; +QC A650T3 PO; +[UNRECOGNIZED DRUG - OTHER] PO
[2018-07-24] MEDS ORDERED: PROPOFOL 200 MG/20 ML VIAL As Ordered ONE ×2 (08:39→10:09)
--- NOTE | 2018-07-24 10:20 | ROOR ---
Patient Name: Javier Ibanez Procedure Date: 07/24/2018 10:00 AM Date of : 1955 Age: 62 Room: [facility] Gender: Male Note Status: Finalized Procedure: Total Colonoscopy to Cecum Indications: Screening for colorectal malignant neoplasm Providers: Juan José Owens MD Referring MD: ABDIRASHID MENDENHALL MD Requesting Provider: Medicines: Monitored Anesthesia Care Complications: No immediate complications. Procedure: Pre-Anesthesia Assessment: - The heart rate, respiratory rate, oxygen saturations, blood pressure, adequacy of pulmonary ventilation, and response to care were monitored throughout the procedure. The Colonoscope was introduced through the anus and advanced to the cecum, identified by appendiceal orifice and ileocecal valve. The colonoscopy was performed without difficulty. The patient tolerated the procedure well. The quality of the bowel preparation was excellent. Findings: The perianal and digital rectal examinations were normal. Non-bleeding internal hemorrhoids were found during retroflexion. The hemorrhoids were small and Grade I (internal hemorrhoids that do not prolapse). Scattered small-mouthed diverticula were found in the recto-sigmoid colon, sigmoid colon and descending colon. The exam was otherwise without abnormality on direct and retroflexion views. Impression: - Non-bleeding internal hemorrhoids. - Diverticulosis in the recto-sigmoid colon, in the sigmoid colon and in the descending colon. - The examination was otherwise normal on direct and retroflexion views. - No specimens collected. - The exam was otherwise normal to the cecum. Recommendation: - Patient has a contact number available for emergencies. The signs and symptoms of potential delayed complications were discussed with the patient. Return to normal activities tomorrow. Written discharge instructions were provided to the patient. - High fiber diet. - Discharge patient to home. - Continue present medications. - Repeat colonoscopy in 10 years for screening purposes. - Return to referring physician. - The findings and recommendations were discussed with the patient's family. Juan José Owens MD Juan José Owens MD 07/24/2018 10:19:41 AM Electronically signed by Juan José Owens MD Number of Addenda: 0 Note Initiated On: 07/24/2018 10:00 AM Estimated Blood Loss: Estimated blood loss: none.
[2018-07-24 10:59] VITALS: BP 130/69
== END 2018-07-24 11:02 | disposition home or self-care (01) ==
LOC: M OPP 08:20
PROVIDERS: ATTEND Internal Medicine Gastroenterology
DX: K64.0 First degree hemorrhoids (principal); K57.30 Diverticulosis of large intestine without perforation or abscess without bleeding; Z12.11 Encounter for screening for malignant neoplasm of colon

== ENCOUNTER → 2018-09-17 | Outpatient (CLI) | payer OTHER ==
[~2018-09-17] MED LIST changes: +CLOT1CRE71 TOP; -LIDOCAINE 2% INJ 100 MG/5 ML SDV (FOR ANES.) As Ordered ONE; -NS 1,000 ML IV ONE; +SING10TA32 PO
--- NOTE | 2018-09-17 20:59 | ECGEPIP ---
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
== END ==
LOC: M EKG 17:04
PROVIDERS: ATTEND Anesthesiology
DX: Z01.818 Encounter for other preprocedural examination (principal)

== ENCOUNTER 2018-09-19 08:52 | Day surgery (SDC) | payer OTHER ==
[~2018-09-19] VITALS: Ht 177.8 cm; Wt 97.5 kg
[~2018-09-19 08:52] MED LIST changes: +EPINEPHrine 1MG/ML INJ 30ML MD-VIAL As Ordered ONE; +LIDOCAINE W/EPINEPHRINE 1% 20ML VIAL As Ordered ONE; +METHYLENE BLUE 0.5% (5MG/ML) 10 ML AMP (PROVAYBLUE)(Q9968 PER 1MG) As Ordered ONE
[2018-09-19] MEDS ORDERED: PROPOFOL 200 MG/20 ML VIAL As Ordered ONE ×2 (09:09→10:36)
[2018-09-19] MEDS ORDERED: SUGAMMADEX SODIUM 500 MG/5 ML VIAL (BRIDION) As Ordered ONE (09:09)
[2018-09-19] MEDS ORDERED: LIDOCAINE 2% INJ 100 MG/5 ML SDV (FOR ANES.) As Ordered ONE (10:36)
[2018-09-19] MEDS ORDERED: dexameTHASONE 4 MG/ML 1ML VIAL (J1100) As Ordered ONE (10:36)
[2018-09-19] MEDS ORDERED: ROCURONIUM BROMIDE 50 MG/5 ML VIAL As Ordered ONE (10:36)
[2018-09-19] MEDS ORDERED: ONDANSETRON 4MG/2ML VIAL (J2405) As Ordered ONE (10:36)
[2018-09-19] MEDS ORDERED: fentaNYL 100 MCG/2 ML INJECTION (J3010) As Ordered ONE ×2 (10:37→12:48)
[2018-09-19] MEDS ORDERED: MIDAZOLAM INJ 2 MG/2 ML VIAL (J2250) As Ordered ONE (10:37)
[2018-09-19] MEDS ORDERED: LR 1,000 ML IV ONE (11:00)
[2018-09-19] MEDS ORDERED: ePHEDrine SULFATE 25 MG/5 ML(5MG/ML) SYRINGE As Ordered ONE (12:11)
[2018-09-19] MEDS ORDERED: PERCOCET 5MG/325MG TAB As Ordered ONE (12:48)
[2018-09-19] MEDS: PERCOCET 5MG/325MG TAB PO PRN ×2 (12:50→13:32)
[2018-09-19] MEDS: fentaNYL 100 MCG/2 ML INJECTION (J3010) IV PRN ×2 (12:50→12:57)
[2018-09-19] MEDS ORDERED: ONDANSETRON 4MG/2ML VIAL (J2405) IV PRN (13:00)
[2018-09-19] MEDS ORDERED: LR 1,000 ML IV SCH ×2 (13:00→14:01)
[2018-09-19 15:40] VITALS: BP 119/64
[2018-09-19] MEDS ORDERED: ACETAMINOPH W/CODEINE #3 TAB UD PO PRN (16:15)
--- NOTE | 2018-09-23 12:52 | RO ---
DATE OF PROCEDURE: 09/19/2018 PREOPERATIVE DIAGNOSES: Nasal septal deviation. Nasal deformity. POSTOPERATIVE DIAGNOSES: Nasal septal deviation. Nasal deformity. OPERATIVE PROCEDURE: Nasal septoplasty and infracture. 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 I used pledgets of adrenaline 1:1000 infiltrated with lidocaine with epinephrine. I started first by making an incision on the left side anteriorly and elevated subperichondrial and periosteal plane. I removed portions of the quadrangular cartilage and the ethmoid plate and vomer which were deviated. Once this done the septum was straight so the incision closed with #4-0 chromic suture. I then made an incision anterior to the inferior turbinates on both sides, elevated the mucoperiosteum off of the nasal bone and then medial lateral osteotomies infractured. The patient tolerated the procedure well. Cast was applied. The patient was extubated and returned to the recovery room in excellent condition. Less than 20 mL of estimated blood loss.
== END 2018-09-19 16:00 | disposition home or self-care (01) ==
LOC: M SDC 08:52
PROVIDERS: ATTEND Otolaryngology
DX: J34.2 Deviated nasal septum (principal); M95.0 Acquired deformity of nose; J45.909 Unspecified asthma, uncomplicated; N40.0 Benign prostatic hyperplasia without lower urinary tract symptoms; Z87.891 Personal history of nicotine dependence; Z79.51 Long term (current) use of inhaled steroids; Z79.899 Other long term (current) drug therapy; F12.90 Cannabis use, unspecified, uncomplicated
CPT/HCPCS: 30520; 30930; 88300; J1100; J2250; J2405; J3010; Q9968

== ENCOUNTER → 2019-07-14 | Outpatient (CLI) | payer OTHER ==
[~2019-07-14] MED LIST changes: -EPINEPHrine 1MG/ML INJ 30ML MD-VIAL As Ordered ONE; -LIDOCAINE W/EPINEPHRINE 1% 20ML VIAL As Ordered ONE; -METHYLENE BLUE 0.5% (5MG/ML) 10 ML AMP (PROVAYBLUE)(Q9968 PER 1MG) As Ordered ONE; -MONT10TA2 PO; +MONT10TA4 PO; -OMEP40CA2 PO; +OMEP40CA97 PO
[2019-07-15 20:09] LABS: PSA % FREE 22.9 % (.); PSA FREE 1.1 ng/mL; PSA TOTAL 4.8 ng/mL (0.0-4.0)
== END ==
LOC: M PLALAB 09:52
PROVIDERS: ATTEND Urology
DX: R97.20 Elevated prostate specific antigen [PSA] (principal)

== ENCOUNTER → 2020-07-08 | Outpatient (REF) | payer OTHER ==
[~2020-07-08] MED LIST changes: +MONT10TA10 PO; -MONT10TA4 PO
== END ==
LOC: M PLALAB 14:53
PROVIDERS: ATTEND Urology
DX: R97.20 Elevated prostate specific antigen [PSA] (principal)

== ENCOUNTER → 2021-07-13 | Outpatient (CLI) | payer MEDICARE, OTHER ==
[~2021-07-13] MED LIST changes: -MONT10TA10 PO; +MONT10TA97 PO; +OMEP40CA4 PO; -OMEP40CA97 PO
== END ==
LOC: M PLALAB 12:56
PROVIDERS: ATTEND Urology
DX: R97.20 Elevated prostate specific antigen [PSA] (principal)

== ENCOUNTER → 2022-01-10 | Outpatient (REF) | payer MEDICARE, OTHER ==
[2022-01-10 18:33] LABS: APPEARANCE, URINE MANUAL CLEAR (CLEAR); BILIRUBIN, URINE MANUAL NEGATIVE (NEGATIVE); BLOOD URINE MANUAL NEGATIVE (NEGATIVE); COLOR, URINE MANUAL YELLOW (YELLOW); GLUCOSE, URINE (UA) MANUAL NEGATIVE (NEGATIVE); KETONE, URINE MANUAL NEGATIVE (NEGATIVE); LEUKOCYTE ESTERASE, URINE MAN NEGATIVE (NEGATIVE); NITRITE, URINE MANUAL NEGATIVE (NEGATIVE); PROTEIN, URINE MANUAL NEGATIVE (NEGATIVE); UROBILINOGEN, URINE MANUAL NORMAL (NORMAL)
== END ==
LOC: M SMT 17:02
PROVIDERS: ATTEND Urology
DX: R31.0 Gross hematuria (principal)

== ENCOUNTER → 2022-01-20 | Outpatient (CLI) | payer MEDICARE, OTHER ==
[2022-01-20 15:45] LABS: BLOOD UREA NITROGEN 25 MG/DL (9-23); CALCIUM LEVEL 9.2 MG/DL (8.3-10.6); CARBON DIOXIDE LEVEL 28 MMOL/L (20-31); CHLORIDE LEVEL 100 MMOL/L (98-107); CREATININE FOR GFR 0.76 MG/DL (0.70-1.30); GLOMERULAR FILTRATION RATE > 60.0 (>49); GLUCOSE, FASTING 85 MG/DL (74-106); POTASSIUM SERUM 4.3 MMOL/L (3.5-5.1); SODIUM LEVEL 136 MMOL/L (136-145)
== END ==
LOC: M PLALAB 10:59
PROVIDERS: ATTEND Urology
DX: R31.0 Gross hematuria (principal)

== ENCOUNTER → 2022-01-24 | Outpatient (CLI) | payer MEDICARE, OTHER ==
[~2022-01-24] MED LIST changes: +ISOVUE-370 76% 100ML VIAL As Ordered ONE
== END ==
LOC: M RAD 14:43
PROVIDERS: ATTEND Urology
DX: K57.30 Diverticulosis of large intestine without perforation or abscess without bleeding (principal); R31.9 Hematuria, unspecified; K76.0 Fatty (change of) liver, not elsewhere classified; K40.90 Unilateral inguinal hernia, without obstruction or gangrene, not specified as recurrent
CPT/HCPCS: 74178; Q9967

== ENCOUNTER → 2022-07-17 | Outpatient (CLI) | payer MEDICARE, OTHER ==
[~2022-07-17] MED LIST changes: -ISOVUE-370 76% 100ML VIAL As Ordered ONE; +MONT-5 PO; -SING10TA32 PO
[2022-07-19 23:07] LABS: PSA TOTAL 3.7 ng/mL (0.0-4.0)
== END ==
LOC: M PLALAB 12:10
PROVIDERS: ATTEND Urology
DX: R97.20 Elevated prostate specific antigen [PSA] (principal)

== ENCOUNTER → 2023-07-20 | Outpatient (CLI) | payer OTHER | LOC: M PLALAB 12:49 | PROVIDERS: ATTEND Urology | DX: R97.20 Elevated prostate specific antigen [PSA] (principal) ==

== ENCOUNTER → 2023-09-10 | Outpatient (CLI) | payer OTHER | LOC: M PLALAB 11:56 | PROVIDERS: ATTEND Urology | DX: R97.20 Elevated prostate specific antigen [PSA] (principal) ==

== ENCOUNTER → 2023-10-01 | Outpatient (CLI) | payer OTHER ==
[~2023-10-01] MED LIST changes: +PROHANCE 279.3MG/ML 15ML VIAL ONE; +PROHANCE 279.3MG/ML 5ML VIAL ONE
== END ==
LOC: M PLAIMG 09:59
PROVIDERS: ATTEND Internal Medicine
DX: R51.9 Headache, unspecified (principal)
CPT/HCPCS: 70544; 70553; A9576